=== PATIENT | female | born 1985 | race Caucasian/White ===

== ENCOUNTER → 2020-02-17 09:37 | Outpatient (CLI) | payer OTHER, SELFPAY ==
[2019-10-01 13:48] VITALS: BMI 57.6
[2020-02-17 12:55] LABS: T4 Free Direct 1.71 ng/dL (0.76-1.46); Thyroid Stim Hormone (TSH) 0.03 uIU/mL (0.358-3.74)
== END ==
PROVIDERS: Referring Provider Internal Medicine Endocrinology, Diabetes & Metabolism; Visit Provider Internal Medicine Endocrinology, Diabetes & Metabolism
DX: E03.8 Other specified hypothyroidism (principal); E06.3 Autoimmune thyroiditis
CPT/HCPCS: 36415; 84439; 84443

== ENCOUNTER → 2020-09-01 12:01 | Outpatient (CLI) | payer OTHER, SELFPAY ==
[2020-09-01 11:35] VITALS: BMI 63.1
[2020-09-01 15:41] LABS: Vitamin B12 664 pg/mL (211-911)
[2020-09-01 15:49] LABS: T4 Free Direct 1.32 ng/dL (0.76-1.46); Thyroid Stim Hormone (TSH) 2.08 uIU/mL (0.358-3.74)
== END ==
PROVIDERS: PCP Nurse Practitioner Family; Referring Provider Internal Medicine Endocrinology, Diabetes & Metabolism; Visit Provider Internal Medicine Endocrinology, Diabetes & Metabolism
DX: R20.2 Paresthesia of skin (principal); E03.8 Other specified hypothyroidism; E06.3 Autoimmune thyroiditis
CPT/HCPCS: 82607; 84439; 84443

== ENCOUNTER → 2022-10-18 | Outpatient (CLI) | payer OTHER, SELFPAY ==
[2022-10-18 16:03] LABS: Free T3 2.6 pg/mL (2.18-3.98); T4 Free Direct 0.64 ng/dL (0.76-1.46)
== END | disposition home or self-care (01) ==
PROVIDERS: PCP Nurse Practitioner Family; Referring Provider Nurse Practitioner Family; Visit Provider Nurse Practitioner Family
DX: E03.8 Other specified hypothyroidism (principal)
CPT/HCPCS: 36415; 84439; 84443; 84481